=== PATIENT | female | born 1995 | race Caucasian/White ===

== ENCOUNTER 2017-11-10 06:26 | Day surgery (SDC) | payer OTHER ==
[2017-11-08 13:36] VITALS: BMI 30.2
[2017-11-10] MEDS ORDERED: MIDAZOLAM HCL 2 MG/2 ML SINGLE DOSE VIAL ONE (07:13)
[2017-11-10] MEDS ORDERED: LIDOCAINE HCL 2% (20ML MULTI-DOSE VIAL) NR ONE (07:21)
[2017-11-10] MEDS ORDERED: SUCCINYLCHOLINE CHLORIDE 200 MG/10 ML VIAL ONE (07:45)
[2017-11-10] MEDS ORDERED: PROPOFOL 20 ML ONE ×2 (07:45)
[2017-11-10] MEDS ORDERED: ONDANSETRON 4 MG/2 ML VIAL ONE (07:46)
[2017-11-10] MEDS ORDERED: DEXAMETHASONE SOD PHOSPHATE 4 MG/1 ML VIAL ONE (07:46)
[2017-11-10] MEDS ORDERED: ceFAZolin SODIUM 1 GM VIAL ONE (07:58)
[2017-11-10] MEDS ORDERED: BENZOIN/ALOE VERA/STORAX/TOLU 58 ML BOTTLE ONE (08:26)
--- NOTE | 2017-11-10 08:41 | OP ---
Operative Note - Note: Operative Date: 11/10/17 Pre-Operative Diagnosis: Recurrent right wrist De Quervain's tenosynovitis Operation: Open right wrist De Quervain's release (first dorsal extensor compartment) Findings: No EPB subsheath Tourniquet Pressure: 250mmHg Tourniquet Time: 16minutes 2g IV ancef given pre-op Post-Operative Diagnosis: Same as Pre-op Surgeon: Fredy Nuñez Digital Computer Systems Analyst: Jc Nuñez Anesthesiologist/SUSTAINABLE DESIGN COORDINATOR: Haley Argueta Anesthesia: General Estimated Blood Loss (mls): 0 Fluid Volume Replaced (mls): 500 Operative Report Dictated: Yes
[2017-11-10] MEDS ORDERED: ONDANSETRON 4 MG/2 ML VIAL IVPUSH PRN (08:42)
[2017-11-10] MEDS ORDERED: oxyCODONE HCL 5 MG TABLET PO PRN (08:42)
--- NOTE | 2017-11-10 08:43 | PN ---
Progress Note (short form) - Note Progress Note: 22F s/p right wrist open first dorsal extensor compartment release POD #0. -Pain control. -Incentive spirometry. -PWB RUE; nothing heavier than weight of cell phone. -Gentle right hand ROM encouraged beginning tomorrow (11/11/2017). -Keep dressing clean & dry. -Percocet, meloxicam ordered to pharmacy for analgesia; OK to use OTC NSAID's instead. -Elevate wrist/hand above level of heart. -Discharge home: f/u [facility] [place] [facility] 11/17/2017; call for appointment: . Fredy Nuñez MD (Orthopaedic Surgery).
[2017-11-10] MEDS ORDERED: LACTATED RINGERS SOLUTION 1,000 ML IV SCH (08:45)
--- NOTE | 2017-11-10 09:36 | OP ---
Date of Operation: 11/10/2017 Surgeon: Frdey Nuñez MD Ferry Boat Captain: Jc Nuñez MD Pre-Operative Diagnosis: Recurrent right wrist De Quervains tenosynovitis. Post-Operative Diagnosis: Recurrent right wrist De Quervains tenosynovitis. Surgical Procedure: Open release of 1st dorsal compartment of right wrist. Anaesthesia: General, LMA. Position: Supine Incision: Transverse. Tourniquet Pressure: 250mmHg. Tourniquet Time: 16 minutes. Estimated Blood Loss: 0cc. Intravenous Fluid: 500cc. Specimens: None. Drains: None. Complications: None. Urine output: None. Bacteriology: None. Transfusions: None. Closure: 3-0 Biosyn. Indications: The patient is a 22-year-old female who was indicated for a right wrist open De Quervains (first dorsal compartment) release in order to ameliorate the symptoms associated with De Quervains tenosynovitis, and improve the use of her hand. The patient was identified in the holding area by her armband. A long discussion was held with the patient regarding the risks, benefits and alternatives of the above-named procedure. Risks include but are not limited to : pain, bleeding, infection, damage to surrounding structures (including nerves , blood vessels, skin, ligaments, tendons and bone), reflex sympathetic dystrophy (RSD), incomplete carpal tunnel release, wound complications, need for further surgery, blood clots, myocardial infarction, pulmonary embolism, anesthesia complications, compartment syndrome, limb loss, limp, loss of function, and . Benefits as mentioned above. Alternatives include no surgery. All questions were answered. The patient understood and agreed to the procedure. Informed consent was obtained, witnessed and verified. The patients correct operative limb - the right upper extremity - was marked, and the patient was taken to the operating room after being seen by the anesthesia and nursing staff. Procedure: The patient was brought into the operating room, placed supine on the OR table and secured with a safety strap. Consent and the operative site were again verified with the patient and nursing and anaesthesia staff. Anesthesia and 2g IV Ancef, was then administered without complication. A time-out was done led by me, the attending surgeon. The patient was positioned with all bony prominences well padded. The operative arm was placed on an arm table. A tourniquet was placed proximally on the right arm and set to 250mmHg. The operative limb was prepped in standard sterile fashion using betadine prep & scrub, wiped off with alcohol, DuraPrep applied, and then free draped. A time-out was repeated, the right upper extremity was exsanguinated using an Esmarch, the tourniquet was inflated, and the case began. A 2.5cm transverse skin incision was made over the area of tenderness of the first dorsal compartment of the wrist, overlying the radial aspect of the distal radial styloid. Blunt dissection with Metzenbaum scissors was carried through the subcutaneous fat down to the level of the extensor retinaculum overlying the first dorsal compartment tendons. The superficial branch of the radial nerve was identified. Ragnell retractors were used to retract this nerve safely out of the way, and to further facilitate visualization of the wound. The proximal and distal borders of the retinaculum were identified. A longitudinal incision through the retinaculum was made using a fresh #15 blade. The retinaculum was fully released proximally and distally using Metzenbaum scissors. A freer elevator was used to mobilize the free flaps of the incised retinaculum. 2 slips of the abductor pollicis longus (APL) tendon were identified and elevated using a freer elevator. The extensor pollicis brevis (EPB) tendon was visualized and not found to be within its own sub-sheath. The EPB tendon was elevated using a freer elevator. The volar flap of the extensor retinaculum remained over the released tendons. The thumb was then abducted and extended and there was no evidence of volar subluxation of the APL or EPB tendons. The wound was then copiously irrigated using normal saline solution. The skin was closed using a 3-0 Biosyn suture in subcuticular fashion. A sterile compressive dressing was applied. The tourniquet was released at a final time of 16 minutes. The sponge and needle counts were correct at the end of the case and I, the attending surgeon, was present and scrubbed throughout the case. The patient was then transferred to the recovery room in stable condition, as per the anesthesia team, having tolerated the procedure well. MD DAYAMI Joy/[id number] MTDVani
[2017-11-10] MEDS ORDERED: diphenhydrAMINE HCL 25 MG CAPSULE (FP) PO ONE (09:37)
[2017-11-10 10:43] VITALS: TEMP 97.7
[2017-11-10 10:46] VITALS: BP 124/82; PULSE 88
== END 2017-11-10 10:35 | disposition home or self-care (01) ==
LOC: FASU 06:26
PROVIDERS: ATTEND Orthopaedic Surgery Adult Reconstructive Orthopaedic Surgery
PROC: 0LN50ZZ Release Right Lower Arm and Wrist Tendon, Open Approach (ICD-10-PCS; principal; 2017-11-10 08:17)
DX: M65.4 Radial styloid tenosynovitis [de Quervain] (principal)
CPT/HCPCS: 84703; 94760

== ENCOUNTER 2017-12-15 09:47 | Day surgery (SDC) | payer OTHER ==
[2017-12-08 13:23] VITALS: BMI 30.2
[2017-12-15] MEDS ORDERED: ceFAZolin SODIUM 1 GM VIAL IVPB ONE ×2 (10:09→10:30)
[2017-12-15] MEDS ORDERED: MIDAZOLAM HCL 2 MG/2 ML SINGLE DOSE VIAL ONE (10:18)
[2017-12-15] MEDS ORDERED: ONDANSETRON 4 MG/2 ML VIAL ONE ×2 (10:29→11:30)
[2017-12-15] MEDS ORDERED: DEXAMETHASONE SOD PHOSPHATE 4 MG/1 ML VIAL ONE (10:29)
[2017-12-15] MEDS ORDERED: ceFAZolin SODIUM 1 GM VIAL ONE (10:29)
[2017-12-15] MEDS ORDERED: PROPOFOL 20 ML ONE (10:31)
[2017-12-15] MEDS ORDERED: ONDANSETRON 4 MG/2 ML VIAL IVPUSH PRN (11:14)
[2017-12-15] MEDS ORDERED: oxyCODONE HCL 5 MG TABLET PO PRN (11:14)
[2017-12-15] MEDS ORDERED: LACTATED RINGERS SOLUTION 1,000 ML IV SCH (11:15)
--- NOTE | 2017-12-15 11:24 | OP ---
Operative Note - Note: Operative Date: 12/15/17 Pre-Operative Diagnosis: Right carpal tunnel syndrome Operation: Right open carpal tunnel release Post-Operative Diagnosis: Same as Pre-op Surgeon: Fredy Nuñez School Lunch Manager: Jc Nuñez Anesthesiologist/CROP SETTING OUT MACHINE OPERATOR: Mukesh Weir Anesthesia: General Estimated Blood Loss (mls): 5 Fluid Volume Replaced (mls): 500 (Crystalloid) Operative Report Dictated: Yes
--- NOTE | 2017-12-15 11:31 | PN ---
Progress Note (short form) - Note Progress Note: 22F s/p right wrist open carpal tunnel release POD #0. -Pain control: Percocet, meloxicam ordered to pharmacy for analgesia; OK to use OTC NSAID's instead. -Incentive spirometry. -STRICT NWB RUE. -Keep dressing clean & dry. -Elevate wrist/hand above level of heart. -Discharge home: f/u [facility] [place] [facility] Mon12/15/2017; call for appointment: . Fredy Nuñez MD (Orthopaedic Surgery).
[2017-12-15] MEDS ORDERED: oxyCODONE HCL 5 MG TABLET ONE (12:10)
[2017-12-15] MEDS ORDERED: KETOROLAC TROMETHAMINE 30 MG/1 ML VIAL ONE (12:16)
[2017-12-15] MEDS ORDERED: KETOROLAC TROMETHAMINE 30 MG/1 ML VIAL IVPUSH ONE (12:37)
--- NOTE | 2017-12-15 13:17 | OP ---
Date of Operation: 12/15/2017 Surgeon: Fredy Nuñez MD Layer Off: Jc Nuñez MD Pre-Operative Diagnosis: Right wrist/hand carpal tunnel syndrome. Post-Operative Diagnosis: Right wrist/hand carpal tunnel syndrome. Surgical Procedure: Right open carpal tunnel release. Anaesthesia: General, LMA. Position: Supine Incision: Longitudinal. Tourniquet Pressure: 250mmHg. Tourniquet Time: 7 minutes. Estimated Blood Loss: 0cc. Intravenous Fluid: 500cc crystalloid. Specimens: None. Drains: None. Complications: None. Urine output: None. Bacteriology: None. Transfusions: None. Closure: 3-0 Nylon. Indications: Lacie Blanco is a 22 year old female who was indicated for a right open carpal tunnel release in order to ameliorate the symptoms associated with carpal tunnel syndrome, and improve the use of her hand. The patient was identified in the holding area by her armband. A long discussion was held with the patient (in the presence of her spouse) regarding the risks, benefits and alternatives of the above-named procedure. Risks include but are not limited to: pain, bleeding, infection, damage to surrounding structures (including nerves, blood vessels, skin, ligaments, tendons and bone), reflex sympathetic dystrophy (RSD), incomplete carpal tunnel release, wound complications, need for further surgery, blood clots, myocardial infarction, pulmonary embolism, anesthesia complications, compartment syndrome, limb loss, limp, loss of function, and . Benefits as mentioned above. Alternatives include no surgery. All questions were answered. The patient appeared to understand and agreed to the procedure. Informed consent was obtained, witnessed and verified. The patients correct operative limb - the right upper extremity - was marked, and the patient was taken to the operating room after being seen by the anesthesia and nursing staff. Procedure: The patient was brought into the operating room, placed supine on the OR table and secured with a safety strap. Consent and the operative site was again verified with the patient and nursing and anaesthesia staff. Anaesthesia was then administered without complication. IV Ancef was administered. A time-out was done led by me, the attending surgeon. The patient was positioned with all bony prominences well padded. A tourniquet was placed proximally on the right arm and set to 250mmHg. The operative limb was prepped in standard sterile fashion using betadine prep & scrub, wiped off with alcohol, and DuraPrep applied. The operative limb was then free draped. A time-out was repeated, the right upper extremity was exsanguinated using an Esmarch, the tourniquet was inflated, and the case began. A longitudinal incision was made in line with the radial border of the fourth finger, extending from the volar wrist crease proximally to the intersection of the Lewis cardinal line. Ragnell retractors were used facilitate visualization of the wound. Sharp dissection was carried through the subcutaneous fat and palmar aponeurosis down to the level of the transverse carpal ligament (TCL). The palmaris brevis muscle was visualized, and its ulnar-most fibers were gently feathered off the underlying TCL. The TCL was then incised longitudinally and elevated using a mosquito clamp as the wrist was flexed. With the wrist maintained in a flexed position, the TCL was fully released proximally and distally using Metzenbaum scissors. Proximally, the distal deep fascia of the forearm, and the palmar aponeurosis were released along with the TCL. Distally, great care was taken not to extend the reach of the scissors more than 3-5mm distal to the distal extent of the TCL to avoid vascular injury. With finger palpation, full release of the carpal tunnel was assured. A freer elevator was used to mobilize the free flaps of the incised TCL up and off the median nerve, again ensuring its full release. The median nerve was visualized and appeared pale. The palmar cutaneous branch of the median nerve was not seen. The wound was then copiously irrigated using normal saline solution. The skin was closed using a 3-0 Biosyn suture in simple interrupted fashion. A sterile compressive dressing was applied. The tourniquet was released at a final time of 7 minutes. The sponge and needle counts were correct at the end of the case and I, the attending surgeon, was present and scrubbed throughout the case. The patient was then transferred to the recovery room in stable condition, as per the anesthesia team, having tolerated the procedure well. MD DAYAMI Joy/[id number] MTDD
[2017-12-15 14:09] VITALS: BP 108/72; PULSE 66; TEMP 98
== END 2017-12-15 14:02 | disposition home or self-care (01) ==
LOC: FASU 09:47
PROVIDERS: ATTEND Orthopaedic Surgery Adult Reconstructive Orthopaedic Surgery
PROC: 01N50ZZ Release Median Nerve, Open Approach (ICD-10-PCS; principal; 2017-12-15 12:00)
DX: G56.01 Carpal tunnel syndrome, right upper limb (principal)
CPT/HCPCS: 84703; 94760

== ENCOUNTER 2018-03-16 06:10 | Day surgery (SDC) | payer OTHER ==
[2018-03-16] MEDS ORDERED: BUPIVACAINE HCL 0.25% 125 MG/50 ML VIAL ONE (07:18)
[2018-03-16] MEDS ORDERED: LIDOCAINE HCL 2% (20ML MULTI-DOSE VIAL) NR ONE (07:18)
[2018-03-16] MEDS ORDERED: BENZOIN/ALOE VERA/STORAX/TOLU 58 ML BOTTLE ONE (07:24)
[2018-03-16] MEDS ORDERED: PROPOFOL 20 ML ONE (07:25)
[2018-03-16] MEDS ORDERED: SUCCINYLCHOLINE CHLORIDE 200 MG/10 ML VIAL ONE (07:25)
[2018-03-16] MEDS ORDERED: MIDAZOLAM HCL 2 MG/2 ML SINGLE DOSE VIAL ONE (07:26)
[2018-03-16] MEDS ORDERED: DEXAMETHASONE SOD PHOSPHATE 4 MG/1 ML VIAL ONE (08:19)
[2018-03-16] MEDS ORDERED: LIDOCAINE HCL/PF 2% SDV 5ML VIAL ONE (08:19)
[2018-03-16] MEDS ORDERED: ONDANSETRON 4 MG/2 ML VIAL ONE ×2 (08:19→09:24)
[2018-03-16] MEDS ORDERED: DESFLURANE GAS 240 ML BOTTLE IH ONE (08:32)
[2018-03-16] MEDS ORDERED: ceFAZolin SODIUM 1 GM VIAL ONE (08:41)
[2018-03-16] MEDS ORDERED: KETOROLAC TROMETHAMINE 30 MG/1 ML VIAL ONE (09:18)
--- NOTE | 2018-03-16 09:23 | PN ---
Progress Note (short form) - Note Progress Note: 22F s/p left wrist open carpal tunnel release POD #0. -Pain control: Percocet, meloxicam ordered to pharmacy for analgesia; OK to use OTC NSAID's instead. -Incentive spirometry. -STRICT NWB RUE. -Keep dressing clean & dry. -Elevate wrist/hand above level of heart. -Discharge home: f/u [facility] [place] [facility] Mon03/23/2018; call for appointment: . Fredy Nuñez MD (Orthopaedic Surgery).
--- NOTE | 2018-03-16 09:24 | OP ---
Operative Note - Note: Operative Date: 03/16/18 Pre-Operative Diagnosis: Left wrist/hand carpal tunnel syndrome Operation: Left wrist/hand open carpal tunnel release Post-Operative Diagnosis: Same as Pre-op Surgeon: Fredy Nuñez Compass Operator: Jc Nuñez Anesthesiologist/UI SOFTWARE DEVELOPER: Ayad Evans Anesthesia: General (LMA) Fluid Volume Replaced (mls): 500 (Crystalloid) Operative Report Dictated: Yes
[2018-03-16] MEDS ORDERED: ONDANSETRON 4 MG/2 ML VIAL IVPUSH ONE (09:30)
[2018-03-16] MEDS ORDERED: LACTATED RINGERS SOLUTION 1,000 ML IV SCH (10:00)
[2018-03-16] MEDS ORDERED: oxyCODONE HCL 5 MG TABLET PO PRN ×2 (10:00)
[2018-03-16] MEDS ORDERED: ONDANSETRON 4 MG/2 ML VIAL IVPUSH PRN (10:00)
[2018-03-16 11:16] VITALS: TEMP 98.4
[2018-03-16 11:23] VITALS: BP 122/76; PULSE 72
--- NOTE | 2018-03-16 13:36 | OP ---
Date of Operation: 03/16/2018 Surgeon: Freyd Nuñez MD Machine Operator Packaging: Jc Nuñez MD Pre-Operative Diagnosis: Left wrist/hand carpal tunnel syndrome. Post-Operative Diagnosis: Left wrist/hand carpal tunnel syndrome. Surgical Procedure: Left open carpal tunnel release. Anaesthesia: Sedation, LMA. Position: Supine Incision: Longitudinal. Tourniquet Pressure: 250mmHg. Tourniquet Time: 19 minutes. Estimated Blood Loss: 0cc. Intravenous Fluid: 500cc. Specimens: None. Drains: None. Complications: None. Urine output: None. Bacteriology: None. Transfusions: None. Closure: 3-0 Nylon. Indications: The patient is a 22 year old female who was indicated for a left open carpal tunnel release in order to ameliorate the symptoms associated with carpal tunnel syndrome, and improve the use of her hand. The patient was identified in the holding area by her armband. A long discussion was held with the patient regarding the risks, benefits and alternatives of the above-named procedure. Risks include but are not limited to : pain, bleeding, infection, damage to surrounding structures (including nerves , blood vessels, skin, ligaments, tendons and bone), reflex sympathetic dystrophy (RSD), incomplete carpal tunnel release, wound complications, need for further surgery, blood clots, myocardial infarction, pulmonary embolism, anesthesia complications, compartment syndrome, limb loss, limp, loss of function, and . Benefits as mentioned above. Alternatives include no surgery. All questions were answered. The patient understood and agreed to the procedure. Informed consent was obtained, witnessed and verified. The patients correct operative limb - the left upper extremity - was marked, and the patient was taken to the operating room after being seen by the anesthesia and nursing staff. Procedure: The patient was brought into the operating room, placed supine on the OR table and secured with a safety strap. Consent and the operative site was again verified with the patient and nursing and anaesthesia staff. Anaesthesia was then administered without complication. 1g IV Ancef was administered. A time-out was done led by me, the attending surgeon. The patient was positioned with all bony prominences well padded. A tourniquet was placed proximally on the left arm and set to 250mmHg. The operative limb was prepped in standard sterile fashion using betadine prep & scrub, alcohol, and DuraPrep, and then free draped. A time-out was repeated, the left upper extremity was exsanguinated using an Esmarch, the tourniquet was inflated, and the case began. A longitudinal incision was made in line with the radial border of the fourth finger, extending from the volar wrist crease proximally to the intersection of the Lewis cardinal line. Ragnell retractors were used facilitate visualization of the wound. Sharp dissection was carried through the subcutaneous fat and palmar aponeurosis down to the level of the transverse carpal ligament (TCL). The palmaris brevis muscle was visualized, and its ulnar-most fibers were gently feathered off the underlying TCL. The TCL was then incised longitudinally and elevated using a mosquito clamp as the wrist was flexed. With the wrist maintained in a flexed position, the TCL was fully released proximally and distally using Metzenbaum scissors. Proximally, the distal deep fascia of the forearm, and the palmar aponeurosis were released along with the TCL. Distally, great care was taken not to extend the reach of the scissors more than 3-5mm distal to the distal extent of the TCL to avoid vascular injury. With finger palpation, full release of the carpal tunnel was assured. A freer elevator was used to mobilize the free flaps of the incised TCL up and off the median nerve, again ensuring its full release. The median nerve was visualized and appeared pale. The palmar cutaneous branch of the median nerve was not seen. The wound was then copiously irrigated using normal saline solution. The skin was closed using a 3-0 nylon suture in simple interrupted fashion. A sterile compressive dressing was applied. The tourniquet was released at a final time of 19 minutes. The sponge and needle counts were correct at the end of the case and I, the attending surgeon, was present and scrubbed throughout the case. The patient was then transferred to the recovery room in stable condition, as per the anesthesia team, having tolerated the procedure well. MD DAYAMI Joy/[id number] MTDD
== END 2018-03-16 11:15 | disposition home or self-care (01) ==
LOC: FASU 06:10
PROVIDERS: ATTEND Orthopaedic Surgery Adult Reconstructive Orthopaedic Surgery
PROC: 01N50ZZ Release Median Nerve, Open Approach (ICD-10-PCS; principal; 2018-03-16 07:30)
DX: G56.02 Carpal tunnel syndrome, left upper limb (principal)
CPT/HCPCS: 84703; 94760

== ENCOUNTER 2020-02-12 08:15 | Day surgery (SDC) | payer OTHER ==
[2020-02-04 12:25] VITALS: BMI 32.2
[2020-02-12] MEDS ORDERED: ONDANSETRON 4 MG/2 ML VIAL ONE ×2 (09:04→11:11)
[2020-02-12] MEDS ORDERED: DEXAMETHASONE SOD PHOSPHATE 4 MG/1 ML VIAL ONE (09:04)
[2020-02-12] MEDS ORDERED: PROPOFOL 20 ML ONE (09:05)
[2020-02-12] MEDS ORDERED: MIDAZOLAM HCL 2 MG/2 ML SINGLE DOSE VIAL ONE (09:06)
[2020-02-12] MEDS ORDERED: LIDOCAINE HCL 2% (20ML MULTI-DOSE VIAL) ONE (09:40)
[2020-02-12] MEDS ORDERED: oxyCODONE HCL 5 MG TABLET PO PRN (12:00)
[2020-02-12] MEDS ORDERED: LACTATED RINGERS SOLUTION 1,000 ML IV SCH (12:00)
[2020-02-12] MEDS ORDERED: ONDANSETRON 4 MG/2 ML VIAL IVPUSH PRN (12:00)
[2020-02-12 12:26] VITALS: TEMP 98.1
[2020-02-12 12:52] VITALS: BP 114/68; PULSE 74
== END 2020-02-12 12:50 | disposition home or self-care (01) ==
LOC: FASU 08:15
PROVIDERS: ATTEND Orthopaedic Surgery Hand Surgery
PROC: 0JBF0ZZ Excision of Left Upper Arm Subcutaneous Tissue and Fascia, Open Approach (ICD-10-PCS; 2020-02-12)
PROC: 0LQ40ZZ Repair Left Upper Arm Tendon, Open Approach (ICD-10-PCS; principal; 2020-02-12 10:32)
DX: M77.12 Lateral epicondylitis, left elbow (principal)
CPT/HCPCS: 84703; 88304-TC; 94760

== ENCOUNTER 2021-05-19 08:24 | Day surgery (SDC) | payer OTHER ==
[2021-05-17 10:59] VITALS: BMI 30.4
[~2021-05-19 08:24] MED LIST: LACTATED RINGERS SOLUTION 1,000 ML IV SCH; ONDANSETRON 4 MG/2 ML VIAL IVPUSH PRN; oxyCODONE HCL 5 MG TABLET PO PRN
[2021-05-19] MEDS ORDERED: LIDOCAINE HCL 2% (20ML MULTI-DOSE VIAL) ONE (09:13)
[2021-05-19] MEDS ORDERED: BUPIVACAINE HCL/PF 0.25% (2.5MG/ML) 10 ML VIAL ONE (09:14)
[2021-05-19] MEDS ORDERED: MIDAZOLAM HCL 2 MG/2 ML SINGLE DOSE VIAL ONE (09:20)
[2021-05-19] MEDS ORDERED: PROPOFOL 20 ML ONE (09:32)
[2021-05-19] MEDS ORDERED: ceFAZolin SODIUM 1 GM VIAL ONE (09:44)
[2021-05-19] MEDS ORDERED: ONDANSETRON 4 MG/2 ML VIAL ONE (10:37)
[2021-05-19] MEDS ORDERED: oxyCODONE HCL 5 MG TABLET ONE (11:36)
[2021-05-19 11:42] VITALS: TEMP 97.8
[2021-05-19 11:57] VITALS: BP 111/56
[2021-05-19 12:34] VITALS: PULSE 73
== END 2021-05-19 12:34 | disposition home or self-care (01) ==
LOC: FASU 08:24
PROVIDERS: ATTEND Orthopaedic Surgery Hand Surgery
PROC: 0JBD0ZZ Excision of Right Upper Arm Subcutaneous Tissue and Fascia, Open Approach (ICD-10-PCS; 2021-05-19)
PROC: 0LQ30ZZ Repair Right Upper Arm Tendon, Open Approach (ICD-10-PCS; principal; 2021-05-19 09:50)
DX: M77.11 Lateral epicondylitis, right elbow (principal)
CPT/HCPCS: 84703; 88304-TC; 94760